=== PATIENT | male | born 1960 | race Caucasian/White ===

== ENCOUNTER 2020-11-07 09:22 | Day surgery (SDC) | payer OTHER, SELFPAY ==
[2020-11-07] MEDS ORDERED: LIDOCAINE 2% 100 MG/5 ML UJET TP ONE (11:13)
[2020-11-07] MEDS ORDERED: diphenhydrAMINE 50 MG/ML VIAL ONE (11:13)
[2020-11-07] MEDS ORDERED: MIDAZOLAM 5 MG/5 ML VIAL ONE (11:13)
[2020-11-07] MEDS ORDERED: fentaNYL citrate 0.05 MG/ML VIAL ONE (11:13)
[2020-11-07] MEDS ORDERED: fentaNYL citrate 0.05 MG/ML VIAL IVP ONE (12:30)
[2020-11-07] MEDS ORDERED: MIDAZOLAM 2 MG/2 ML VIAL IVP ONE (12:30)
== END 2020-11-07 12:55 | disposition home or self-care (01) ==
LOC: MFCC 09:22 → MDS 09:22
PROVIDERS: ATTEND Internal Medicine Gastroenterology
DX: Z12.11 Encounter for screening for malignant neoplasm of colon (principal); D12.0 Benign neoplasm of cecum; D12.8 Benign neoplasm of rectum; E78.00 Pure hypercholesterolemia, unspecified; Z79.899 Other long term (current) drug therapy; Z20.822 Contact with and (suspected) exposure to COVID-19
CPT/HCPCS: 45385; 87426; 88305; J2250; J3010; J1200